=== PATIENT | female | born 1970 | race Caucasian/White ===

== ENCOUNTER → 2021-09-30 | Outpatient (CLI) | payer BC | LOC: COL.RAD 10:30 | DX: N82.0 Vesicovaginal fistula (principal); Z90.710 Acquired absence of both cervix and uterus | CPT/HCPCS: Q9967 ==

== ENCOUNTER 2021-12-10 05:17 | Day surgery (SDC) | payer BC ==
[2021-12-10] VITALS (11 sets, daily range): BP systolic 121–192; BP diastolic 55–94; PULSE 72–88; TEMP 97.7–98.9
[~2021-12-10] VITALS: Ht 177.8 cm; Wt 139.6 kg
[2021-12-10] MEDS ORDERED: EFFEXOR-XR150 MG PO (05:47)
[2021-12-10] MEDS ORDERED: EFFEXOR XR75 MG/CAP PO (05:48)
[2021-12-10] MEDS ORDERED: DESYREL 50MG50 MG PO (05:49)
[2021-12-10] MEDS ORDERED: ATIVAN 0.50.5 MG/TAB PO (05:50)
[2021-12-10] MEDS ORDERED: NORCO 325 MG-7.1 TAB PO (05:50)
--- NOTE | 2021-12-10 07:12 | NUR ---
0688 - HUMAN RESOURCE OFFICER was contacted for fluid orders and to notify about PT disposition; new orders recieved by RN. 0700 - PT taken to PACU by Alexis to recieve a block. PO medications admistered. One PT belongings bag brought to PACU w/ labels attached.
--- NOTE | 2021-12-10 12:00 | NUR ---
returned to room from PACU per bed, awake and alert but drowsy, IV infusing and placed on pump at 75ml/hr, O2 on at 2L/NC and O2 sat 94%, nicholson cath patent draining only scant amount light pink clear urine in tubing, abdominal robotic sites CD&I, bulb drain to compression and site is CD&I, full assessment completed, see interventions for further info, denies needs at this time
--- NOTE | 2021-12-10 12:35 | NUR ---
thrashing about in bed and c/o pain to abdomen, and nausea, medicated with morphine 2mg slow IV and zofran 4mg IV, will monitor, will hold po meds until nausea is better,
--- NOTE | 2021-12-10 12:45 | NUR ---
O2 sat betwen 88-91% on O2 at 2L, O2 increased to 3L/NC
--- NOTE | 2021-12-10 13:25 | NUR ---
Dr Ferreira notified of patient's home BP medication not being on home med rec and pressure is elevated and needs restarted, also informed him of her low urine output, orders received
--- NOTE | 2021-12-10 13:55 | NUR ---
fluid bolus started and po meds given, she is awake and alert and states pain is better, urine output had increased prior to fluid bolus being started and had approx 50ml red colored urine in drainage bag, O2 sat 94% on O2 at 3L/NC
--- NOTE | 2021-12-10 14:45 | NUR ---
dozes between checks, urine output has increased and is light pink in the tubing, head of bed remains elevated at 30 degrees, bulb suction remains compressed,
--- NOTE | 2021-12-10 16:00 | NUR ---
awake and looking at TV, had jello and pudding and tolerated well, instructed on ordering regular food, nicholson emptied of 750ml urine, light pink in tubing
--- NOTE | 2021-12-10 17:40 | NUR ---
is tearful and just emotionally upset and has history of anxiety, medicated with ativan 0.5mg, eating supper and tolerates well
--- NOTE | 2021-12-10 18:53 | NUR ---
bedside shift report given to VIK Frederick
--- NOTE | 2021-12-10 22:13 | NUR ---
Patient assessed around 2009. Patient has IV fluids running per orders in left hand. Complaining of abdominal pain and given PRN pain medication per orders. Did get up and ambulate in hallway with this nurse. Indwelling nicholson with red urine output. Drain to left abdomen, bulb to compression. Lap sites open to air, edges well approximated. Patient assisted into bed. Voices no further questions, needs, or concerns at that time. In bed with call light within reach.
--- NOTE | 2021-12-11 03:00 | NUR ---
Patient anxious and tearful. Requesing something to help with anxiety. Called Dr. Kohler around 0200, order for PRN Ativan changed to Q6H PRN, and given per order. This nurse assisted patient with calling and daughter as requested. Afterwards this nurse sat and talked with patient for about 20 minutes, which seemed to help. Patient thankful of cares.
[2021-12-11 05:23] VITALS: BP 127/56; PULSE 96; TEMP 97.9
[2021-12-11 06:27] LABS: BASO % 0.2 % (0.0-2.0); EOS % 0.1 % (0.0-4.0); GRAN # 14.4 K/mm3 (1.4-6.5); GRAN % 83.4 % (42.2-75.2); HEMATOCRIT 40.4 % (37.0-47.0); HEMOGLOBIN 12.7 g/dl (12.5-16.0); LYMPH # 1.9 K/mm3 (1.2-3.4); LYMPH % 10.9 % (20.0-51.0); MEAN CELL VOLUME 88 fl (80.0-100.0); MEAN CORPUSCULAR HEMOGLOBIN 28 pg (27-31); MEAN CORPUSCULAR HGB CONC 31 g/dl (33.0-37.0); MEAN PLATELET VOLUME 10.8 fl (7.4-10.4); MONO # 0.9 K/mm3 (0.1-0.6); MONO % 5.1 % (1.7-9.3); PLATELET COUNT 355 K/mm3 (130-400); REDCELL DISTRIBUTION WIDTH-CV 14.9 % (11.5-14.5)
--- NOTE | 2021-12-11 06:30 | NUR ---
Patient given PRN Roxicodone and [place] during the night as requested. Held scheduled Acetaminophen. PRN Ativan was effective with anxiety, and patient able to sleep some overnight. Does not seem as anxious this morning, or as tearful. Voices no questions, needs, or concerns at this time. Urine continues to be blood tinged. LIZZIE drain emptied, bloody output. In bed with call light within reach. Continues on IV fluids per orders.
[2021-12-11 06:44] LABS: CALCIUM 8.9 mg/dL (8.4-10.2); CREATININE, serum 0.84 mg/dL (0.57-1.11); POTASSIUM 4.3 mmol/L (3.5-4.5)
[2021-12-11 07:29] VITALS: BP 132/61; PULSE 95; TEMP 97.9
--- NOTE | 2021-12-11 08:00 | NUR ---
Pt. sitting up in bed. Pt. is A&OX3, assessment complete. Pt. reports pain at a 9 on pain scale, gave pain meds per orders. LIZZIE drain noted with minimal bloody drainage. Lap sites well approximated. Irwin catheter to DD with clear yellow urine noted. Pt. denies further needs, call light within reach.
--- NOTE | 2021-12-11 09:22 | NUR ---
Initial visit; Patient tearfully thanked [employer] Technician for looking in on her offering prayer and God's blessings. Patient is young and has had a very difficult time with her health. [employer] Technician will continue to keep Jose in her prayers and visit while she is here at [facility].
--- NOTE | 2021-12-11 10:48 | NUR ---
LIZZIE drain pulled at this time. Pt. tolerated well. Pt. reports pain at a 5 on pain scale, pre medicated at this time also. Pt. denies further needs. Call light within reach.
--- NOTE | 2021-12-11 16:25 | NUR ---
Pt. ready to discharge. Reviewed leg bag teaching, home med rec. scripts, discharge instructions, follow up appointments, and pt. health summary. Pt. and voice understanding. Pt. int discontinued from lt. hand. Pt. dressed and escorted out by wheelchair.
--- NOTE | 2021-12-11 16:43 | NUR ---
link trainer maintenance worker met with faye to discuss discharge planning. Patient states that she lives at home with her spouse, and 21 year old daughter. Patient, due to recent prolonged need for hospitalizations and wound care has aide assistance in her home twice weekly and wound care once a week. Patient resides in [place], [place] and her primary care physician is Dr Goldstein in [place], [place]. Patient plans to return home upon discharge and denies concerns at this time.
== END 2021-12-11 16:25 | disposition home or self-care (01) ==
LOC: SDCO 05:17 → SURG 07:30 → SDCO 07:30 → EDSTATUS 07:30 → SURG 13:24 → SDCO 12-11 16:25
PROVIDERS: Urology
DX: N82.0 Vesicovaginal fistula (principal); E66.01 Morbid (severe) obesity due to excess calories; Z90.710 Acquired absence of both cervix and uterus; F17.210 Nicotine dependence, cigarettes, uncomplicated; Z68.41 Body mass index [BMI] 40.0-44.9, adult
CPT/HCPCS: A4314; A9284; C1769; J0360; J0690; J1100; J1170; J1650; J1885; J1940; J2250; J2270; J2370; J2405; J2704; J2795; J3010; J7030; J7120

== ENCOUNTER → 2021-12-25 | Outpatient (CLI) | payer BC ==
[~2021-12-25] MED LIST: ATIVAN 0.50.5 MG/TAB PO; DESYREL 50MG50 MG PO; EFFEXOR XR75 MG/CAP PO; EFFEXOR-XR150 MG PO; NORCO 325 MG-7.1 TAB PO
== END ==
LOC: COL.RAD 12-18 09:00
DX: N82.0 Vesicovaginal fistula (principal)
CPT/HCPCS: Q9967